=== PATIENT | female | born 1965 | race African-American/Black ===

== ENCOUNTER 2016-12-09 11:51 | Emergency (ER) | payer OTHER ==
[~2016-12-09] VITALS: Ht 160 cm; Wt 113.5 kg
[2016-12-09 11:54] VITALS: BP 207/99; PULSE 95; RESP 20; TEMP 98.6; O2SAT 100
[2016-12-09 12:23] VITALS: O2SAT 98
[2016-12-09] MEDS ORDERED: ONDANSETRON HCL 4 MG/2 ML VIAL IVP ONE (12:30)
[2016-12-09] MEDS ORDERED: SODIUM CHLORIDE 0.9% FLUSH 10 ML FLUSH IVF PRN (12:30)
[2016-12-09] MEDS ORDERED: MORPHINE SULFATE 4 MG/ML INJ IV PUSH ONE (12:30)
--- NOTE | 2016-12-09 12:37 | RADRPT ---
EXAM DATE/TIME: 12/09/2016 12:27 [facility] COMPARISON: CHEST SINGLE AP, November 19, 2014, 10:27. INDICATIONS : Left side body numbness and tingling for 1 month MEDICAL HISTORY : None. SURGICAL HISTORY : None. ENCOUNTER: Initial ACUITY: 1 month PAIN SCORE: 0/10 LOCATION: Left chest FINDINGS: Portable AP view of the chest demonstrates a normal-sized cardiac silhouette. No effusion, consolidat ion, or pneumothorax is visualized. The bones and soft tissues demonstrate no acute abnormality. Lung s are underinflated with mild atelectasis at the lung bases. CONCLUSION: No acute cardiopulmonary abnormality is identified. There is atelectasis at the lung bases. Efrain Deshpande MD on December 09, 2016 at 12:34 Board Certified Radiologist. This report was verified electronically.
[2016-12-09 12:41] LABS: AUTOMATED NEUTROPHIL # 3.9 TH/MM3 (1.8-7.7); BASOPHIL # 0.2 TH/MM3 (0-0.2); EOSINOPHIL # 0.2 TH/MM3 (0-0.4); EOSINOPHIL % 2.2 % (0.0-4.0); HEMATOCRIT 29.5 % (35.0-46.0); LYMPHOCYTE # 2.3 TH/MM3 (1.0-4.8); MEAN CELL VOLUME 72.3 FL (80.0-100.0); MEAN CORPUSCULAR HEMOGLOBIN 22.5 PG (27.0-34.0); MONO % 7.7 % (0.0-8.0); NEUT % 54.1 % (16.0-70.0); PLATELET COUNT 328 TH/MM3 (150-450); RED BLOOD COUNT 4.09 MIL/MM3 (4.00-5.30); RED CELL DISTRIBUTION WIDTH 19.7 % (11.6-17.2); WHITE BLOOD COUNT 7.1 TH/MM3 (4.0-11.0)
--- NOTE | 2016-12-09 12:41 | PD ---
HPI Chief Complaint: Numbness/Tingling Time Seen by Provider: 12:02 Travel History International Travel<30 days: No Contact w/Intl Traveler<30days: No Traveled to known affect area: No History of Present Illness HPI The patient is a 51-year-old after [place] female who presents to the emergency department for neurologic complaints. The patient states over the last month she has had numbness that is affected left foot, eventually the left leg, and now is affecting the left arm. The patient states the numbness of the left leg started approximately one month ago, the arm started earlier this week. She then developed a sharp shooting pain up the left arm to the left chest that was worse with certain movements, however, is different than the ongoing numbness. The patient then developed numbness of the left side of the face. The patient states yesterday she had difficulty with her vision out of the left eye, also had difficulty seeing the left side of the computer screen, states her symptoms resolved after 15 minutes. The patient denies any weakness of the left side of the body, however, occasionally feels like the left leg is going to "give out "when she has muscle cramps. The patient was told that she is "poor circulation "by her physician in [place], however, denies any known history of peripheral vascular disease. The patient denies any history of hypertension, hyperlipidemia, diabetes, tobacco use, CVA, TIA, or CAD. Patient' s symptoms are moderate, there are no current alleviating or exacerbating factors. PFSH Past Medical History Heart Rhythm Problems: No Cardiovascular Problems: Yes (CHEST PAIN) Congestive Heart Failure: No Diabetes: No Diminished Hearing: No Genitourinary: Yes (KIDNEY DISEASE) Tetanus Vaccination: > 5 Years Influenza Vaccination: Yes ?: Not LMP: on currently Past Surgical History Appendectomy: Yes Section: Yes (X 4 ) Other Surgery: Yes (LUMPS REMOVED FROM BREASTS) Family History Family Myocardial Infarction: Yes Family Hypercholesterolemia: Yes Social History Alcohol Use: Yes (2-3 X WEEKLY) Tobacco Use: No Substance Use: No Allergies-Medications (Allergen,Severity, Reaction): Coded Allergies: Augmentin (Verified Allergy, Severe, HIVE, 12/09/16) Bactrim (Verified Allergy, Severe, HIVES, 12/09/16) Cipro (Verified Allergy, Severe, BREATHING PROBLEMS, 12/09/16) Flexeril (Verified Allergy, Severe, TONGUE SWELLING, 12/09/16) Nafcillin (Verified Allergy, Severe, "BLACKOUT", 12/09/16) Reported Meds & Prescriptions Reported Meds & Active Scripts Active No Active Prescriptions or Reported Medications Review of Systems Except as stated in HPI: all other systems reviewed are Neg Eyes: Positive: Visual changes HENT: No: Headaches, Lightheadedness Cardiovascular: Positive: Chest Pain or Discomfort (left-sided chest wall pain with moving the left upper extremity) Respiratory: No: Shortness of Breath Gastrointestinal: No: Nausea, Vomiting, Abdominal Pain Genitourinary: No: Incontinence Musculoskeletal: Positive: Pain, No: Weakness Neurologic: Positive: Paresthesia, Sensory Disturbance, No: Weakness, Dizziness, Headache, Change in Mentation, Slurred Speech Physical Exam Narrative GENERAL: Awake, alert, nontoxic-appearing 51-year-old female who appears her stated age and is in no acute respiratory distress. SKIN: Focused skin assessment warm/dry. HEAD: Atraumatic. Normocephalic. EYES: Pupils equal and round. Pupils are 3 mm bilateral and reactive. EOMs are intact. Patient is able to see fingers at a distance of 2 feet out of the left eye and right eye individually. ENT: No nasal bleeding or discharge. Mucous membranes pink and moist. NECK: Trachea midline. No JVD. CARDIOVASCULAR: Regular rate and rhythm. No murmur appreciated. Tenderness to palpation of the lateral left chest wall. RESPIRATORY: No accessory muscle use. Clear to auscultation. Breath sounds equal bilaterally. GASTROINTESTINAL: Abdomen soft, non-tender, nondistended. MUSCULOSKELETAL: No obvious deformities. No clubbing. No cyanosis. No edema. Positive radial pulses on the left and right. Positive dorsalis pedal pulses. NEUROLOGICAL: Awake and alert. No obvious cranial nerve deficits. Motor grossly within normal limits. Normal speech. No drift of the arms or legs. Finger to nose is normal bilateral. Rmii-de-tusu is normal. Patient is alert and oriented. EOMs are intact. Visual carlson are intact and symmetric. Sensation is diminished to soft touch over the left face, left arm, and left leg when compared to the right. Basting Cleaner is 5/5 bilateral. PSYCHIATRIC: Appropriate mood and affect; insight and judgment normal. Data Data Last Documented VS Vital Signs Date Time Temp Pulse Resp B/P Pulse Ox O2 Delivery O2 Flow Rate FiO2 12/09/16 15:42 86 18 184/95 100 Room Air 12/09/16 11:54 98.6 Orders Electrocardiogram (12/09/16 12:19) Prothrombin Time / Inr (Pt) (12/09/16 12:19) Act Partial Throm Time (Ptt) (12/09/16 12:19) Complete Blood Count With Diff (12/09/16 12:19) Comprehensive Metabolic Panel (12/09/16 12:19) Creatine Kinase (Cpk) (12/09/16 12:19) Troponin I (12/09/16 12:19) Chest, Single Ap (12/09/16 12:19) Ecg Monitoring (12/09/16 12:19) Iv Access Insert/Monitor (12/09/16 12:19) Oximetry (12/09/16 12:19) Morphine Inj (Morphine Inj) (12/09/16 12:30) Ondansetron Inj (Zofran Inj) (12/09/16 12:30) Sodium Chloride 0.9% Flush (Ns Flush) (12/09/16 12:30) Mri Brain W&W/O Contrast (12/09/16 ) CKMB (12/09/16 12:30) CKMB% (12/09/16 12:30) Gadodiamide Pf Inj (Omniscan Pf Inj) (12/09/16 15:20) Labs Laboratory Tests Test 12/09/16 12:30 White Blood Count 7.1 TH/MM3 Red Blood Count 4.09 MIL/MM3 Hemoglobin 9.2 GM/DL Hematocrit 29.5 % Mean Corpuscular Volume 72.3 FL Mean Corpuscular Hemoglobin 22.5 PG Mean Corpuscular Hemoglobin 31.0 % Concent Red Cell Distribution Width 19.7 % Platelet Count 328 TH/MM3 Mean Platelet Volume 8.7 FL Neutrophils (%) (Auto) 54.1 % Lymphocytes (%) (Auto) 33.0 % Monocytes (%) (Auto) 7.7 % Eosinophils (%) (Auto) 2.2 % Basophils (%) (Auto) 3.0 % Neutrophils # (Auto) 3.9 TH/MM3 Lymphocytes # (Auto) 2.3 TH/MM3 Monocytes # (Auto) 0.5 TH/MM3 Eosinophils # (Auto) 0.2 TH/MM3 Basophils # (Auto) 0.2 TH/MM3 CBC Comment AUTO DIFF Differential Comment AUTO DIFF CONFIRMED Prothrombin Time 10.4 SEC Prothromb Time International 0.9 RATIO Ratio Activated Partial 29.4 SEC Thromboplast Time Sodium Level 139 MEQ/L Potassium Level 4.0 MEQ/L Chloride Level 108 MEQ/L Carbon Dioxide Level 22.9 MEQ/L Anion Gap 8 MEQ/L Blood Urea Nitrogen 13 MG/DL Creatinine 1.20 MG/DL Estimat Glomerular Filtration 57 ML/MIN Rate Random Glucose 92 MG/DL Calcium Level 8.3 MG/DL Total Bilirubin 0.3 MG/DL Aspartate Amino Transf 23 U/L (AST/SGOT) Alanine Aminotransferase 20 U/L (ALT/SGPT) Alkaline Phosphatase 85 U/L Total Creatine Kinase 459 U/L Creatine Kinase MB 1.9 NG/ML Creatine Kinase MB % 0.4 % Troponin I LESS THAN 0.02 NG/ML Total Protein 7.9 GM/DL Albumin 3.2 GM/DL MDM Medical Decision Making Medical Screen Exam Complete: Yes Emergency Medical Condition: Yes Medical Record Reviewed: Yes Interpretation(s) EKG reveals normal sinus rhythm with a rate of 81. Low QRS voltage precordial leads. Q wave noted in lead 3 with inverted T-wave. Laboratory Tests Test 12/09/16 12:30 White Blood Count 7.1 TH/MM3 Red Blood Count 4.09 MIL/MM3 Hemoglobin 9.2 GM/DL Hematocrit 29.5 % Mean Corpuscular Volume 72.3 FL Mean Corpuscular Hemoglobin 22.5 PG Mean Corpuscular Hemoglobin 31.0 % Concent Red Cell Distribution Width 19.7 % Platelet Count 328 TH/MM3 Mean Platelet Volume 8.7 FL Neutrophils (%) (Auto) 54.1 % Lymphocytes (%) (Auto) 33.0 % Monocytes (%) (Auto) 7.7 % Eosinophils (%) (Auto) 2.2 % Basophils (%) (Auto) 3.0 % Neutrophils # (Auto) 3.9 TH/MM3 Lymphocytes # (Auto) 2.3 TH/MM3 Monocytes # (Auto) 0.5 TH/MM3 Eosinophils # (Auto) 0.2 TH/MM3 Basophils # (Auto) 0.2 TH/MM3 CBC Comment AUTO DIFF Prothrombin Time 10.4 SEC Prothromb Time International 0.9 RATIO Ratio Activated Partial 29.4 SEC Thromboplast Time Sodium Level 139 MEQ/L Potassium Level 4.0 MEQ/L Chloride Level 108 MEQ/L Carbon Dioxide Level 22.9 MEQ/L Anion Gap 8 MEQ/L Blood Urea Nitrogen 13 MG/DL Creatinine 1.20 MG/DL Estimat Glomerular Filtration 57 ML/MIN Rate Random Glucose 92 MG/DL Calcium Level 8.3 MG/DL Total Bilirubin 0.3 MG/DL Aspartate Amino Transf 23 U/L (AST/SGOT) Alanine Aminotransferase 20 U/L (ALT/SGPT) Alkaline Phosphatase 85 U/L Total Creatine Kinase 459 U/L Troponin I LESS THAN 0.02 NG/ML Total Protein 7.9 GM/DL Albumin 3.2 GM/DL Last Impressions Chest X-Ray 12/09/16 1219 Signed Impressions: Service Date/Time: Friday, December 09, 2016 12:27 - CONCLUSION: No acute cardiopulmonary abnormality is identified. There is atelectasis at the lung bases. Efrain Deshpande MD MRI of the brain reveals no acute intracranial abnormality demonstrated. There is no infarct and no evidence of MS. Differential Diagnosis Differential diagnosis includes brain tumor, CVA, TIA, lead toxicity, hypokalemia, electrolyte abnormality, multiple sclerosis, neuropathy. Narrative Course IV was established, labs are drawn and sent, and the patient was placed on cardiac telemetry monitoring and continuous pulse oximetry monitoring. EKG was ordered and interpreted. MRI the brain with and without contrast was ordered to evaluate for possible CVA versus multiple sclerosis. Electrolytes were sent to lab. The patient was administered morphine and Zofran for left-sided chest wall pain is worse with movement of the left upper extremity. Chest x-ray was ordered to rule out Pancoast tumor. Chest x-rays unremarkable. Electrolytes are unremarkable. MRI the brain reveals no evidence of infarct or mass. The patient most likely has peripheral neuropathy. The patient's blood pressure was elevated, however, she states she has whitecoat hypertension. The patient does not want to start medications at this time, is advised to keep a log of her blood pressures over the next several weeks, outside the hospital, and if they are elevated to follow-up with her primary physician for institution of treatment. The patient agrees and understands. She is stable for outpatient follow-up. Diagnosis Primary Impression: Paresthesias Patient Instructions: General Instructions Additional Instructions: Medications as directed. Follow-up with your primary physician. Return if symptoms worsen or progress. Please provide the patient a copy of her MRI results and lab results at discharge. Med/Other Pt SpecificInfo: Prescription(s) given Scripts Tramadol 50 Mg Tab50 Mg PO Q6H PRN (PAIN) #12 TAB Ref 0 Prov:Aryan Duarte MD 12/09/16 Disposition: 01 DISCHARGE HOME Condition: Stable Aryan Duarte MD Dec 09, 2016 12:41
[2016-12-09 12:44] LABS: CHLORIDE 108 MEQ/L (98-107); SODIUM (NA) 139 MEQ/L (136-145)
[2016-12-09 12:45] LABS: HEMO FLAGS AUTO DIFF
[2016-12-09 12:48] LABS: ANION GAP 8 MEQ/L (5-15); BICARBONATE 22.9 MEQ/L (21.0-32.0); BLOOD UREA NITROGEN 13 MG/DL (7-18)
[2016-12-09 12:49] LABS: APTT (PATIENT) 29.4 SEC (24.3-30.1); INTERNATIONAL NORMALIZED RATIO 0.9 RATIO; PROTHROMBIN TIME - PATIENT 10.4 SEC (9.8-11.6)
[2016-12-09 12:51] LABS: ALT (GPT) 20 U/L (10-53); AST (GOT) 23 U/L (15-37); GLOMERULAR FILTRATION RATE 57 ML/MIN (>89)
[2016-12-09 12:53] LABS: TOTAL BILIRUBIN ADULT 0.3 MG/DL (0.2-1.0)
[2016-12-09 12:54] LABS: ALKALINE PHOSPHATASE 85 U/L (45-117); CREATINE KINASE 459 U/L (26-192)
[2016-12-09 13:06] LABS: CKMB 1.9 NG/ML (0.5-3.6)
[2016-12-09 13:13] VITALS: BP 200/108; PULSE 81; O2SAT 100
[2016-12-09 13:14] LABS: SCAN/DIFF AUTO DIFF CONFIRMED
[2016-12-09] MEDS ORDERED: GADODIAMIDE PF 287 MG/ML 20 ML VIAL (for RAD MRI) IV ONE (15:20)
[2016-12-09 15:42] VITALS: BP 184/95; PULSE 86; RESP 18; O2SAT 100
--- NOTE | 2016-12-09 15:53 | RADRPT ---
EXAM DATE/TIME: 12/09/2016 15:18 [facility] COMPARISON: No previous studies available for comparison. INDICATIONS : CVA vs atypical MS. Left upper extremity pain and weakness. CONTRAST: 20 cc Omniscan (gadodiamide) IV MEDICAL HISTORY : Renal insufficiency, chronic. SURGICAL HISTORY : section. Appendectomy. ENCOUNTER: Initial ACUITY: 1 day PAIN SCORE: 0/10 LOCATION: cranial TECHNIQUE: Multiplanar, multisequence MRI of the brain was performed both prior to and following the administrat ion of paramagnetic contrast. FINDINGS: CEREBRUM: The ventricles are normal for age. No evidence of midline shift, mass lesion, hemorrhage or acute in farction. No extraaxial fluid collections are seen. The sella appears empty. WHITE MATTER: No significant signal abnormalities are seen in the white matter. POSTERIOR FOSSA: The cerebellum and brainstem are intact. The 4th ventricle is midline. The cerebellopontine angle is unremarkable. The cerebellar tonsils are normal in position. DIFFUSION IMAGING: No focal areas of restricted diffusion are seen. No evidence of acute infarction. EXTRACRANIAL: The visualized portions of the orbits and paranasal sinuses are unremarkable. POST-CONTRAST: No abnormal areas of parenchymal or dural enhancement. No evidence of blood-brain barrier breakdown. CONCLUSION: No acute intracranial abnormality demonstrated. There is no infarct and no evidence of MS. Efrain Lopez MD on December 09, 2016 at 15:50 Board Certified Radiologist. This report was verified electronically.
[2016-12-09] MEDS ORDERED: TRAM50TA PO (15:58)
--- NOTE | 2016-12-10 15:52 | EKG ---
Date Performed: 12/09/2016 Time Performed: 12:30:44 PTAGE: 51 years EKG: Sinus rhythm BORDERLINE LEFT AXIS DEVIATION LOW QRS VOLTAGE IN PRECORDIAL LEADS NONSPECIFIC ST-T WAVE CHANGES ABN ORMAL ECG PREVIOUS TRACING : 11/19/2014 09.59 DOCTOR: Abhay Everett Interpretating Date/Time 12/10/2016 15:52:02
== END 2016-12-09 16:16 | disposition home or self-care (01) ==
LOC: PHED 11:51
DX: R20.2 Paresthesia of skin (principal); R94.31 Abnormal electrocardiogram [ECG] [EKG]
CPT/HCPCS: 70553; 71010; 80053; 82550; 82552; 84484; 85025; 85610; 85730; 93005; 96374; 96375; 99285; A9579; J2270; J2405